=== PATIENT | male | born 1985 | race Caucasian/White ===

== ENCOUNTER 2021-08-23 07:27 | Emergency (ER) | payer OTHER, SELFPAY ==
[2021-08-23] VITALS (25 sets, daily range): BP systolic 118–143; BP diastolic 54–71; PULSE 62–88; RESP 13–24; TEMP 36.7; O2SAT 93–100
--- NOTE | 2021-08-23 07:30 | RT.EKG_ITS ---
APPROVED REPORT Exam: Resting ECG Reason for Exam: chest pain Patient Location: E HR:72 bpm ECG Measurements Heart Rate 72 AXIS MO 130 P 76 QRSd 118 QRS 69 QT 386 T 51 QTc 422 Conclusion Sinus rhythm...normal P axis, V-rate 60- 99 Nonspecific intraventricular conduction delay...QRSd >115mS, not LBBB/RBBB ST elev, probable normal early repol pattern...ST elevation, age<56
--- NOTE | 2021-08-23 07:34 | W.ED.GENAD ---
Discharge Plan Disposition Patient Disposition: HOME Condition: Stable Discharge Details Clinical Impression: Chest pain, Abdominal pain Primary Care Provider: Valerie Montes De Oca ED Provider: Luis Thornton Home Meds and New Rx's Prescriptions: New famotidine [Pepcid] 20 mg tablet 20 mg PO BID Qty: 60 RF: 0 Discharge Instructions Instructions: Famotidine (By mouth), Abdominal Pain (ED) Additional Instructions: Take Pepcid 20 mg, 1 tablet by mouth twice a day. Allow for bowel rest today. Maintain a clear liquid diet this afternoon. You may advance to soft bland food late this evening and tomorrow morning. Advance slowly as tolerated thereafter. Please contact your primary care physician to arrange follow-up. Return to the ER immediately for any worsening or new concerning symptoms. Referrals: Valerie Montes De Oca, HVAC PROJECT ENGINEER [Primary Care Provider] - Discharge Data Discharge Date/Time-TO BE ENTERED AT DEPARTURE: 08/23/21 12:16 Medical Decision Making <Kole Chandra MD - Last Filed: 08/23/21 07:41> 36 yo male with hx of prior appendectomy, who comes in with complaints of upper abdominal discomfort since last night around midnight while he was sleeping. He denies having pain like this in the past denies vomit but states that he doesn't feel like he can vomit currently for unclear reasons. He localizes the pain to the lower anterior chest and upper mid to right abdomen. HE is tender with palpation to the epigastric area, no lower abdominal tenderness and no guarding. No urinary symptoms or diarrhea per patient. Given location of pain will obtain ecg and troponin to evaluate for nstemi though his heart score is 1 so feel acs is unlikely. No tearing back pain and normal vascular exam so doubt dissection. No hypoxia, tachycardia or evidence of dvt on exam so doubt PE. Will obtain labs to evaluate for hepatitis, pancreatitis and ct to evaluate for possible cholecystitis. Differential Diagnosis Differential Diagnosis: gastritis, pancreatitis, cholecystitis Lab Data Lab results reviewed: Yes I reviewed the patient's lab results. ECG Data Attestation: I personally reviewed and interpreted this ECG (s) as follows: Prior ECG tracings: not available for review Interpretation: sinus rhythm, rate of 72, early repol no stemi <Luis Thornton MD - Last Filed: 08/23/21 19:18> 8:30 -- Care signed out by Dr. Chandra, please see his documentation guarding the ED presentation and course. Plan at signout was to follow-up on CT and labs. Patient receiving Toradol IV and IV fluid. Labs reviewed: nondiagnostic. No leukocytosis, no electrolyte abnormalities, normal LFTs and lipase. CT the abdomen pelvis was interpreted by radiology: No CT findings of an acute intra-abdominal process. Nursing notes significant improvement in pain after Toradol. -- Delta trop neg. Patient reassessed and stable. Abdominal exam benign. Plan for discharge with outpatient follow-up. Usual customary discharge instructions were reviewed with the patient. He was encouraged to return immediately should any worsening or new concerning symptoms. 19:00 --Received call from radiologist who performed an over read of the virtual radiology interpretation and states that there are enlarged mesenteric lymph nodes and concern for enteritis. Attempted to contact the patient preferred phone number and left HPI <Kole Chandra MD - Last Filed: 08/23/21 07:41> General Mode of arrival: ambulatory. Date/Time Provider Initiated Documentation: 08/23/21 07:28. Limitations to Documentation: no limitations. Information obtained by: patient. History of Present Illness 36 year old M presents to the emergency department with the chief complaint of abdominal pain, described as moderate, Quality is described as aching and sharp, and is localized to the abdomen. Patient started experiencing this hour(s) (7) and it has been constant. No relieving factors improve symptom(s), No exacerbating factors reported . Patient notes other (lower chest pain). Related Data Home Medications Medication Instructions Recorded Confirmed famotidine [Pepcid] 20 mg PO BID #60 tab 08/23/21 Previous Rx's Medication Instructions Recorded famotidine [Pepcid] 20 mg PO BID #60 tab 08/23/21 Allergies Allergy/AdvReac Type Severity Reaction Status Date / Time No Known Allergies Allergy Verified 08/23/21 07:46 Review of Systems <Kole Chandra MD - Last Filed: 08/23/21 07:41> All systems reviewed & are unremarkable except as noted in HPI and below Constitutional Constitutional: Denies chills and Denies fever(s) Cardiovascular Cardiovascular: Denies dyspnea Respiratory Respiratory: Denies cough and Denies dyspnea Gastrointestinal Gastrointestinal: Denies nausea and Denies vomiting Musculoskeletal Musculoskeletal: Denies joint swelling PFSH <Kole Chandra MD - Last Filed: 08/23/21 07:41> All Active Problems (Updated 08/23/21 @ 07:40 by Kole Chandra MD) Chest pain (Acute) Abdominal pain (Acute) Post-traumatic stress disorder (Chronic) Psychiatric consult ([facility]): 12/12/2020 Difficulty sleeping (Acute) Elevated BP without diagnosis of hypertension (Acute) Anxiety and depression (Chronic) RX sertraline (ineffective) + counseling; Bupropion trial 12/2020 Psychiatric consult ([facility]): 12/12/2020 Surgical History H/O wisdom tooth extraction History of appendectomy (~1989) 5yo History of vasectomy (~2018) Family History Maternal Grandfather Stroke Maternal Grandmother Stroke Social History Smoking/Tobacco Use Status: Never Smoking risk assessment performed?: Yes Alcohol Intake: current Alcohol Intake frequency: 0-2 drinks per day Alcohol type: beer Details: with 5-6 beers at a time about once per week when without responsibilities Drug use: Never Substance use type: does not use Adopted: No Caregiver/Support person: No Foster care: No Household members: none and other Details: from mothers of children. Living in [facility] in [place] now. 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, [employer] Sexually active: Yes Do you think of yourself as: straight/heterosexual Current gender identity: male Do you feel safe in your relationship?: Yes Exam <Kole Chandra MD - Last Filed: 08/23/21 07:41> Const General: no acute distress Orientation: alert [facility] Head: normal to inspection Ears: external ears normal General nose exam: external nose normal Mouth: moist mucous membranes Eyes General: appearance normal, both eyes and all related structures Neck Neck: normal visual inspection Resp Effort & Inspection: normal respiratory effort and able to speak in complete sentences Cardio Rate: regular rate GI Palpation: soft and tender Skin General skin exam: no rashes or lesions noted Neuro General: patient alert and patient oriented x3 Extrem General: normal to inspection Psych Mental Status: mental status grossly normal Sign Out <Kole Chandra MD - Last Filed: 08/23/21 07:41> Sign Out Data: Sign Out Comment: since midnight upper abdomen/lower anterior chest discomfort, vague description of the pain, pending labs and ct, reassessment Last updated by Kole Chandra MD at 08/23/21 07:42
[2021-08-23 07:54] LABS: Abs Immature Grans 0.03 10^3/uL (0.0-0.06); Absolute Basophil Count 0.02 10^3/uL (0.0-0.2); Absolute Eosinophil Count 0.04 10^3/uL (0.0-0.7); Absolute Lymphocyte Count 0.79 10^3/uL (1.2-3.4); Absolute Monocyte Count 0.85 10^3/uL (0.1-0.8); Absolute Neutrophil Count 5.49 10^3/uL (1.2-6.7); Basophils % 0.3; Eosinophils % 0.6; HCT 48.2 % (40.0-50.0); HGB 16.3 g/dL (13.5-17.5); Immature Grans % 0.4; Lymphocytes % 10.9; MCHC 33.8 % (32.0-36.0); MCV 91.8 fL (80-95); MPV 8.9 fL (8.0-11.0); Monocytes % 11.8; Nucleated RBC 0 %; Platelet Count 175 10^3/uL (130-400); RBC 5.25 10^6/uL (4.36-5.78); RDW 11.4 % (11.8-14.1); RDW-SD 38.8 fL; WBC 7.22 10^3/uL (4.4-10.8)
[2021-08-23] MEDS: Ketorolac 15 MG/ML VIAL IVP (07:54)
[2021-08-23] MEDS: Normal Saline 1,000 ML 1000 ML IV (07:54)
[2021-08-23 08:09] LABS: Bilirubin Negative (Negative); Blood Small (Negative); Clarity Clear (Clear); Glucose Negative (Negative); Ketones 15 mg/dL (Negative); Leukocyte Esterase Negative (Negative); Nitrite Negative (Negative); Specific Gravity 1.025 (1.005-1.025); Urobilinogen 0.2 EU/dL (Up TO 0.2); pH 5.5 (5-8)
[2021-08-23] MEDS: Omnipaque 350 MG/ML 100 ML BTL IJ (08:10)
[2021-08-23] MEDS: Normal Saline Flush 10 ML SYR IVP (08:13)
[2021-08-23 08:14] LABS: ALT 27 U/L (16-63); AST 22 U/L (15-37); Albumin 3.9 g/dL (3.4-5.0); Alkaline Phosphatase 53 U/L (46-116); BUN 11 mg/dL (7-18); Bilirubin, Total 0.3 mg/dL (0.2-1.0); CREATININE 0.9 mg/dL (0.70-1.30); Calcium 8.5 mg/dL (8.5-10.1); Chloride 100 mmol/L (98-107); Glucose 116 mg/dL (74-106); Lipase 136 U/L (73-393); Magnesium 2.1 mg/dL (1.8-2.4); Sodium 136 mmol/L (136-145); Total Protein 6.9 g/dL (6.4-8.2); Troponin I < 50 ng/L (<or=60)
[2021-08-23 08:15] LABS: Epithelial Cells Rare HPF (Negative); WBC Negative HPF (0-5)
[2021-08-23 08:16] LABS: Bacteria Negative HPF (Negative); C & S Indicated? No; Casts Negative LPF (Negative); Crystals Negative HPF (Negative); Mucus Trace (Negative)
--- NOTE | 2021-08-23 08:20 | DI.CT_ITS ---
Exam(s) CT ABDOMEN PELVIS W EXAM: CT ABDOMEN PELVIS W CLINICAL HISTORY: abdominal pain. TECHNIQUE: Imaging Protocol: Axial computed tomography images with coronal and sagittal reformatted images were created and reviewed CONTRAST MATERIAL: Intravenous: Omnipaque 100cc Oral: None COMPARISON: No exams were available for comparison FINDINGS: VISUALIZED LUNG BASES: No nodules nor pleural effusions evident. ABDOMEN: There is no ascites. LIVER: There are no focal hepatic lesions evident . GALLBLADDER/BILIARY: No obvious gallbladder pathology. CBD is not dilated. PANCREAS: No evidence of pancreatic mass nor dilatation of the pancreatic duct. SPLEEN: Spleen is not enlarged. No obvious intrasplenic lesions. Splenic and portal veins are paten t. ADRENALS: There are no significant adrenal masses. KIDNEYS:No cysts evident. No solid renal masses. No calculi nor hydronephrosis.. ABDOMINAL AORTA: Abdominal aorta is not enlarged. LYMPH NODES:There is no retroperitoneal nor paraaortic adenopathy. ABDOMINAL WALL: No evidence of significant anterior abdominal wall nor inguinal hernia. GI: There is no evidence of bowel obstruction, free air, nor abscess. MESENTERY: There are multiple slightly prominent mesenteric lymph nodes noted, ranging up to 1 point 4 cm size. Also transverse colon exhibits possible colitis pattern although this is possibly false p ositive due to lack of intraluminal oral contrast. Also slight thickening of jejunal loops/possible enteritis. PELVIS: GI: No evidence of appendicitis.No evidence of sigmoid diverticulitis. LYMPH NODES: There is no intrapelvic nor inguinal adenopathy. REPRODUCTIVE: Prostate not enlarged. URINARY BLADDER: Difficult to evaluate as it is collapsed-empty. OSSEOUS: No significant osseous lesions. Sacroiliac joints appear unremarkable IMPRESSION: 1. There are multiple prominent lymph nodes in the mesentery and there is subtle findings in the adam sverse colon and small bowel as described above, somewhat difficult to evaluate because of lack of or al contrast. There is a possibly that these findings represent significant enteritis with mesenteric lymphadenopathy or possibly inflammatory bowel disease. Appropriate follow-up is recommended. 2. The spleen is not enlarged. There is no para-aortic adenopathy and no adenopathy in the iliac cat ins. No inguinal adenopathy. 3. There is no ascites. Study 1st read by [employer]. Final report called by myself to the ER physician 08/23/2021 RADIATION DOSE DELIVERED: 721.61mGy.cm Total DLP DATA REPOSITORY: All CT scans at this facility are submitted to the National Radiology Data Registry (NRDR) Dose Index Registry (DIR) with the [employer] (ACR). RADIATION OPTIMIZATION: All CT scans at this facility use at least one of these dose optimization te chniques: automated exposure control; mA and/or kV adjustment per patient size (includes targeted exa ms where dose is matched to clinical indication); or iterative reconstruction.
--- NOTE | 2021-08-23 08:39 | DI.VRAD_ITS ---
PROCEDURE INFORMATION: Exam: CT Abdomen And Pelvis With Contrast Exam date and time: 08/23/2021 7:34 AM Age: 36 years old Clinical indication: Other: Abdominal pain TECHNIQUE: Imaging protocol: Computed tomography of the abdomen and pelvis with contrast. Radiation optimization: All CT scans at this facility use at least one of these dose optimization techniques: automated exposure control; mA and/or kV adjustment per patient size (includes targeted exams where dose is matched to clinical indication); or iterative reconstruction. Contrast material: OMNIPAQUE 350; Contrast route: INTRAVENOUS (IV); COMPARISON: No relevant prior studies available. FINDINGS: Liver: Normal. No mass. Gallbladder and bile ducts: Normal. No calcified stones. No ductal dilation. Pancreas: Normal. No ductal dilation. Spleen: Normal. No splenomegaly. Adrenal glands: Normal. No mass. Kidneys and ureters: Normal. No hydronephrosis. Stomach and bowel: Unremarkable. No obstruction. No mucosal thickening. Appendix: The appendix is not clearly identified however no inflammatory changes are present in the right lower quadrant to suggest acute appendicitis. Intraperitoneal space: Unremarkable. No free air. No significant fluid collection. Vasculature: Unremarkable. No abdominal aortic aneurysm. Lymph nodes: Unremarkable. No enlarged lymph nodes. Urinary bladder: Unremarkable as visualized. Reproductive: Unremarkable as visualized. Bones/joints: Unremarkable. No acute fracture. Soft tissues: Unremarkable. IMPRESSION: No CT findings of an acute intra-abdominal process Dictated and Authenticated by: Valeriy Rodriguez MD. Ordering:REYNALDO Sharif MD
--- NOTE | 2021-08-23 10:45 | RT.EKG_ITS ---
APPROVED REPORT Exam: Resting ECG Reason for Exam: repeat at 3 hr Patient Location: E HR:63 bpm ECG Measurements Heart Rate 63 AXIS AK 140 P 70 QRSd 116 QRS 61 QT 399 T 46 QTc 407 Conclusion Sinus rhythm...normal P axis, V-rate 60- 99 Nonspecific intraventricular conduction delay...QRSd >115mS, not LBBB/RBBB ST elev, probable normal early repol pattern...ST elevation, age<55
[2021-08-23 11:05] LABS: Troponin I < 50 ng/L (<or=60)
== END 2021-08-23 12:16 | disposition home or self-care (01) ==
PROVIDERS: Emergency Medicine; Emergency Provider Student in an Organized Health Care Education/Training Program; PCP Nurse Practitioner Adult Health
DX: R07.9 Chest pain, unspecified (principal); R10.9 Unspecified abdominal pain; R59.0 Localized enlarged lymph nodes
CPT/HCPCS: 36415; 80053; 83690; 93005; 96361; 96374; 99285; 74177; 81003; 81015; 83735; 84484; 85025; 93010; 99284; J1885; J3490

== ENCOUNTER 2024-05-05 00:43 | Outpatient (CLI) | payer BC, SELFPAY ==
--- NOTE | 2024-05-05 09:08 | DI.RAD_ITS ---
Exam(s) XR LUMBAR SPINE COMPLETE EXAM: XR LUMBAR SPINE COMPLETE CLINICAL HISTORY: chronic intermittent lumbar back pain,m54.50. TECHNIQUE: 2D digital imaging was performed of the lumbar spine. Five images were obtained. AP, la teral, right oblique, left oblique and L5-S1 spot views were obtained. COMPARISON: No exams were available for comparison FINDINGS: BONES: No fracture or destructive lesion. Vertebral bodies are unremarkable. No facet hypertrophy kwame ntified. DISKS: Intervertebral disc spaces are maintained. ALIGNMENT: Lumbar spinal alignment is within normal limits. No spondylolysis or spondylolisthesis. SOFT TISSUE: Normal. IMPRESSION: Unremarkable radiographs of the lumbar spine. DATA REPOSITORY: RADIATION DOSE DELIVERED:
== END 2024-05-05 01:03 ==
LOC: DI 00:43
PROVIDERS: PCP Nurse Practitioner Adult Health; Visit Provider Nurse Practitioner Adult Health
DX: M54.50 Low back pain, unspecified (principal)
CPT/HCPCS: 72110

== ENCOUNTER 2024-10-27 00:16 | Outpatient (CLI) | payer BC, SELFPAY ==
--- NOTE | 2024-10-27 07:00 | DI.MRI_ITS ---
Exam(s) MR LUMBAR SPINE WO EXAM: MR LUMBAR SPINE WO CLINICAL HISTORY: acute on chronic lumbar spine pain,M54.50. TECHNIQUE: Multiplanar multisequence MRI of the Lumbar spine was performed. COMPARISON: CR XR LUMBAR SPINE COMPLETE from 05/05/2024 FINDINGS: Bones: The last intervertebral disc space is designated the L5/S1 level for the numbering purpose of this examination. The vertebral body heights are well maintained. Alignment is satisfactory. The si gnal characteristics are unremarkable. There is disc desiccation at L4-5 and L5-S1. Cord: The conus tip ends at the T12 level. It is of normal size and signal intensity. T12-L1: No disc herniations or bulges are present. No central spinal canal or neural foraminal stenos is. L1-2: No disc herniations or bulges are present. No central spinal canal or neural foraminal stenosis . L2-3: No disc herniations or bulges are present. No central spinal canal or neural foraminal stenosis . L3-4: No disc herniations or bulges are present. No central spinal canal or neural foraminal stenosis . L4-5: There is a small central disc herniation. There may be mild mass effect on the L5 nerve roots. There is mild narrowing of the central spinal canal. No neural foraminal stenosis is seen. L5-S1: There is a small central disc herniation. There does not appear to be any mass effect on the exiting nerve roots. No central spinal canal or neural foraminal stenosis. Soft tissues: The visualized SI joints and sacrum are well maintained. The paraspinal soft tissues ar e unremarkable. IMPRESSION: 1. Small central disc herniation at L4-L5 which may cause mild mass effect on the L5 nerve roots. Th ere is also mild narrowing of the central spinal canal. 2. Small central disc herniation at L5-S1. No central spinal canal or neural foraminal stenosis resu lts. DATA REPOSITORY:
== END 2024-10-27 00:36 ==
LOC: DI 00:16
PROVIDERS: PCP Nurse Practitioner Adult Health; Visit Provider Nurse Practitioner Adult Health
DX: M51.27 Other intervertebral disc displacement, lumbosacral region (principal); G89.29 Other chronic pain
CPT/HCPCS: 72148